=== PATIENT | male | born 1955 | race Two or more races ===

== ENCOUNTER 2021-03-23 08:45 | Inpatient (IN) | payer OTHER ==
[~2021-03-23] VITALS: Ht 170.2 cm; Wt 79.4 kg
[2021-03-23] MEDS ORDERED: AMBIEN10 MG PO (14:31)
[2021-03-26] MEDS ORDERED: DICLOFENAC POTA50 MG (08:14)
[2021-03-26] MEDS ORDERED: SILDENAFIL CIT100 MG (08:14)
[2021-03-26] MEDS ORDERED: MAXIMUM D3325 MCG (08:15)
[2021-03-26] MEDS ORDERED: PANTOPRAZOLE SO40 MG (08:15)
[2021-03-26] MEDS ORDERED: LISINOPRIL10 MG (08:15)
== END 2021-03-28 20:56 | disposition home or self-care (01) | DRG 331 ==
LOC: O/R 03-26 05:32 → SURH 03-26 05:32 → O/R 03-27 10:07 → SURH 03-27 10:11
PROVIDERS: ADMIT Colon & Rectal Surgery; ATTEND Colon & Rectal Surgery
PROC: 0DTN4ZZ Resection of Sigmoid Colon, Percutaneous Endoscopic Approach (ICD-10-PCS; 2021-03-26)
PROC: 3E0F7SF Introduction of Other Gas into Respiratory Tract, Via Natural or Artificial Opening (ICD-10-PCS; 2021-03-26)
PROC: 0DTP4ZZ Resection of Rectum, Percutaneous Endoscopic Approach (ICD-10-PCS; principal; 2021-03-26 12:30)
DX: K57.32 Diverticulitis of large intestine without perforation or abscess without bleeding (principal); Z20.822 Contact with and (suspected) exposure to COVID-19